=== PATIENT | female | born 1980 | race Caucasian/White ===

== ENCOUNTER 2022-02-15 17:00 | Day surgery (SDC) | payer OTHER ==
[2022-02-10 14:57] VITALS: BMI 23.7
[~2022-02-15 17:00] MED LIST: BACITRACIN ZINC 15 GM TUBE TOPICAL OINTMENT ONE; BUPIVACAINE HCL 100 ML ONE; BUPIVACAINE HCL/PF 0.25% (2.5MG/ML) 10 ML VIAL ONE; BUPIVACAINE HCL/PF 2.5 MG/ML - 30 ML VIAL IJ ONE; DEXAMETHASONE SOD PHOSPHATE 4 MG/1 ML VIAL ONE; EPINEPHrine/PF 1 MG/1 ML (1:1,000) AMPULE ONE; FENTANYL CITRATE/PF 50 MCG/ML VIAL ONE; HEPARIN NA (PORCINE) 5,000 UNITS/ML 1ML VIAL ONE; HYDROmorphone HCL/PF 1 MG/ML VIAL ONE; HYDROmorphone HCl 2 MG/ML VIAL IVPUSH PRN; LACTATED RINGERS SOLUTION 1,000 ML IV SCH; LIDOCAINE HCL 1%, 10 MG/ML (20ML VIAL) ONE; MIDAZOLAM HCL 2 MG/2 ML SINGLE DOSE VIAL ONE; ONDANSETRON 4 MG/2 ML VIAL IVPUSH PRN; ONDANSETRON 4 MG/2 ML VIAL ONE; PROPOFOL 20 ML ONE; ROCURONIUM BROMIDE 50 MG/5 ML SYRINGE ONE; SUCCINYLCHOLINE CHLORIDE 200 MG/10 ML SYRINGE ONE; ceFAZolin SODIUM 1 GM VIAL ONE; oxyCODONE HCL 5 MG TABLET PO PRN
[2022-02-15] MEDS ORDERED: HYDROmorphone HCl 2 MG/ML VIAL ONE (17:14)
[2022-02-15] MEDS ORDERED: PROMETHAZINE HCL 25 MG/1 ML VIAL ONE (17:29)
[2022-02-15] MEDS: CEFAZOLIN 1 GM in DEXTROSE 5%-WATER - 50 ML IVPB SCH (19:41)
[2022-02-15 22:41] VITALS: RESP 18
[2022-02-15] MEDS: ONDANSETRON 4 MG/2 ML VIAL IVPB PRN (23:40)
[2022-02-15] MEDS: ACETAMINOPHEN 1000 MG/100 ML BAG IVPB PRN (23:41)
[2022-02-16] MEDS: CEFAZOLIN 1 GM in DEXTROSE 5%-WATER - 50 ML IVPB SCH ×2 (01:09→06:39)
[2022-02-16 06:42] VITALS: TEMP 98.5
[2022-02-16] MEDS ORDERED: HEPARIN NA (PORCINE) 5,000 UNITS/ML 1ML VIAL SQ SCH (08:00)
[2022-02-16] MEDS: ACETAMINOPHEN 1000 MG/100 ML BAG IVPB PRN (09:03)
[2022-02-16] MEDS: ONDANSETRON 4 MG/2 ML VIAL IVPB PRN (09:37)
[2022-02-16] MEDS ORDERED: BUDESONIDE/FORMETEROL FUMARATE 160/4.5 mcg INHALER IH SCH (10:00)
[2022-02-16] MEDS ORDERED: LORATADINE 10 MG TABLET PO SCH (10:00)
[2022-02-16 10:32] VITALS: BP 112/72; PULSE 76
== END 2022-02-16 10:51 | disposition home or self-care (01) ==
LOC: SUATTDRO 17:00 → FASUSAT 17:00 → FM/S 18:07 → FASUSAT 02-16 10:51
PROVIDERS: ATTEND Surgery
PROC: 0WQF0ZZ Repair Abdominal Wall, Open Approach (ICD-10-PCS; principal; 2022-02-15 13:05)
PROC: 0J080ZZ Alteration of Abdomen Subcutaneous Tissue and Fascia, Open Approach (ICD-10-PCS; 2022-02-15 13:05)
DX: K43.2 Incisional hernia without obstruction or gangrene (principal); M95.8 Other specified acquired deformities of musculoskeletal system
CPT/HCPCS: 84703; 88302-TC; 94760; J1644

== ENCOUNTER 2022-05-20 10:39 | Day surgery (SDC) | payer SELFPAY ==
[2022-05-17 11:30] VITALS: BMI 24.4
[~2022-05-20 10:39] MED LIST changes: -BACITRACIN ZINC 15 GM TUBE TOPICAL OINTMENT ONE; -BUPIVACAINE HCL 100 ML ONE; -BUPIVACAINE HCL/PF 0.25% (2.5MG/ML) 10 ML VIAL ONE; -BUPIVACAINE HCL/PF 2.5 MG/ML - 30 ML VIAL IJ ONE; -DEXAMETHASONE SOD PHOSPHATE 4 MG/1 ML VIAL ONE; -EPINEPHrine/PF 1 MG/1 ML (1:1,000) AMPULE ONE; -FENTANYL CITRATE/PF 50 MCG/ML VIAL ONE; -HEPARIN NA (PORCINE) 5,000 UNITS/ML 1ML VIAL ONE; +HEPARIN NA (PORCINE) 5,000 UNITS/ML 1ML VIAL SQ ONE; -HYDROmorphone HCL/PF 1 MG/ML VIAL ONE; -HYDROmorphone HCl 2 MG/ML VIAL IVPUSH PRN; -LACTATED RINGERS SOLUTION 1,000 ML IV SCH; -LIDOCAINE HCL 1%, 10 MG/ML (20ML VIAL) ONE; -MIDAZOLAM HCL 2 MG/2 ML SINGLE DOSE VIAL ONE; -ONDANSETRON 4 MG/2 ML VIAL IVPUSH PRN; -ONDANSETRON 4 MG/2 ML VIAL ONE; -PROPOFOL 20 ML ONE; -ROCURONIUM BROMIDE 50 MG/5 ML SYRINGE ONE; -SUCCINYLCHOLINE CHLORIDE 200 MG/10 ML SYRINGE ONE; -ceFAZolin SODIUM 1 GM VIAL ONE; -oxyCODONE HCL 5 MG TABLET PO PRN
[2022-05-20] MEDS ORDERED: BUPIVACAINE HCL/EPINEPHRINE/PF 30 ML VIAL IJ ONE (11:32)
[2022-05-20] MEDS ORDERED: EPINEPHrine/PF 1 MG/1 ML (1:1,000) AMPULE ONE ×2 (11:42→12:40)
[2022-05-20] MEDS ORDERED: BACITRACIN ZINC 15 GM TUBE TOPICAL OINTMENT ONE (11:42)
[2022-05-20] MEDS ORDERED: BUPIVACAINE HCL/PF 2.5 MG/ML - 30 ML VIAL IJ ONE (11:43)
[2022-05-20] MEDS ORDERED: HEPARIN NA (PORCINE) 5,000 UNITS/ML 1ML VIAL ONE (12:02)
[2022-05-20] MEDS ORDERED: LIDOCAINE HCL 1%, 10 MG/ML (20ML VIAL) ONE (12:40)
[2022-05-20] MEDS ORDERED: PROPOFOL 20 ML ONE ×2 (13:38→16:20)
[2022-05-20] MEDS ORDERED: ROCURONIUM BROMIDE 50 MG/5 ML SYRINGE ONE ×2 (13:39→14:29)
[2022-05-20] MEDS ORDERED: MIDAZOLAM HCL 2 MG/2 ML SINGLE DOSE VIAL ONE (13:40)
[2022-05-20] MEDS ORDERED: ePHEDrine SULFATE 50 MG/1 ML AMPULE ONE (14:02)
[2022-05-20] MEDS ORDERED: ceFAZolin SODIUM 1 GM VIAL ONE (14:03)
[2022-05-20] MEDS ORDERED: DEXAMETHASONE SOD PHOSPHATE 4 MG/1 ML VIAL ONE (14:17)
[2022-05-20] MEDS ORDERED: ONDANSETRON 4 MG/2 ML VIAL ONE ×2 (14:17→16:50)
[2022-05-20] MEDS ORDERED: HYDROmorphone HCL/PF 1 MG/ML VIAL ONE (14:57)
[2022-05-20] MEDS ORDERED: NEOSTIGMINE METHYLSULFATE 0.5 MG/1 ML - 10 ML MDV ONE (15:27)
[2022-05-20] MEDS ORDERED: GLYCOPYRROLATE 0.2 MG/1 ML VIAL ONE (16:02)
[2022-05-20] MEDS ORDERED: ACETAMINOPHEN INJECTION 100 ML IVPB ONE (16:49)
[2022-05-20] MEDS ORDERED: FENTANYL CITRATE/PF 50 MCG/ML VIAL ONE ×2 (16:50→17:27)
[2022-05-20] MEDS ORDERED: PROMETHAZINE HCL 25 MG/1 ML VIAL IVPB PRN (17:11)
[2022-05-20] MEDS ORDERED: KETOROLAC TROMETHAMINE 30 MG/1 ML VIAL IVPUSH ONE (17:11)
[2022-05-20] MEDS ORDERED: oxyCODONE HCL 5 MG TABLET PO PRN ×3 (17:11→17:31)
[2022-05-20] MEDS ORDERED: ACETAMINOPHEN 1000 MG/100 ML BAG IVPB ONE (17:11)
[2022-05-20] MEDS ORDERED: ONDANSETRON 4 MG/2 ML VIAL IVPUSH PRN (17:11)
[2022-05-20] MEDS ORDERED: HYDROmorphone HCl 2 MG/ML VIAL IVPUSH PRN (17:12)
[2022-05-20] MEDS ORDERED: LACTATED RINGERS SOLUTION 1,000 ML IV SCH ×2 (17:15→17:45)
[2022-05-20] MEDS ORDERED: ONDANSETRON 4 MG/2 ML VIAL IVPB PRN (17:31)
[2022-05-20] MEDS ORDERED: oxyCODONE HCL 5 MG TABLET ONE (18:05)
[2022-05-20 18:22] VITALS: TEMP 97.5
[2022-05-20 18:43] VITALS: BP 136/70; PULSE 76; RESP 16
== END 2022-05-20 18:45 | disposition home or self-care (01) ==
LOC: FASU 10:39
PROVIDERS: ATTEND Plastic Surgery
PROC: 0J083ZZ Alteration of Abdomen Subcutaneous Tissue and Fascia, Percutaneous Approach (ICD-10-PCS; 2022-05-20)
PROC: 0W0F0ZZ Alteration of Abdominal Wall, Open Approach (ICD-10-PCS; principal; 2022-05-20 14:11)
DX: R19.8 Other specified symptoms and signs involving the digestive system and abdomen (principal)
CPT/HCPCS: 84703; 94760; J1644